=== PATIENT | male | born 1955 | race Caucasian/White ===

== ENCOUNTER 2022-10-24 20:27 | Inpatient (IN) | payer MEDICARE, SELFPAY ==
[2022-10-24] MEDS ORDERED: Senokot S 8.6-50 MG TAB PO PRN (21:03)
[2022-10-24] MEDS ORDERED: Acetaminophen 325 MG TAB PO PRN (21:03)
[2022-10-24] MEDS ORDERED: Zolpidem Tartrate 5 MG TAB PO PRN (21:03)
[2022-10-24] MEDS ORDERED: HYDROcodone/Acetaminophen 5/325 mg Tablet PO PRN (21:03)
[2022-10-24] MEDS ORDERED: Ondansetron PF 4 MG/2 ML Vial IVP PRN (21:03)
[2022-10-24] MEDS ORDERED: Calcium Carbonate 500 MG ChewTAB PO PRN (21:03)
[2022-10-24] MEDS ORDERED: Guaifenesin DM 100-10/5 ML UDCUP PO PRN (21:03)
[2022-10-24] MEDS ORDERED: Nitroglycerin 0.4 MG TAB (25 Tab Bottle) SL PRN (21:05)
[2022-10-24] MEDS ORDERED: Lactated Ringer's 1,000 ML IV SCH (21:15)
[2022-10-24] MEDS ORDERED: Metoprolol Tartrate 25 MG TAB PO SCH (21:15)
[2022-10-24] MEDS: Famotidine/PF 20 mg/2ml Vial SLOW IVP SCH (22:11)
[2022-10-24 23:10] VITALS: BMI 26.9
[2022-10-25 03:42] LABS: Anion Gap 14 mmol/L (10-20); BUN (Urea Nitrogen) 12 mg/dL (8.4-25.7); Calc. Creatinine Clearance 101 mL/min (70-130); Calcium 8.8 mg/dL (7.8-10.44); Carbon Dioxide 22 mmol/L (23-31); Cardiac Risk 7.9 (Less than 4.5); Chloride 109 mmol/L (98-107); Cholesterol 221 mg/dl (< 200 Desired); Estimated GFR 96; Glucose 92 mg/dL (80-115); HDL Cholesterol 28 mg/dL (>60 Neg Risk); LDL Cholesterol, Calculated 161 mg/dL; Potassium 3.9 mmol/L (3.5-5.1); Sodium 141 mmol/L (136-145); Triglycerides 162 mg/dL (Less than 150)
[2022-10-25 04:11] LABS: #Basophils 0.1 10x3/uL (0.0-0.2); #Eosinphils 0.1 10x3/uL (0.0-0.5); #Monocytes 0.6 10x3/uL (0.0-1.1); #Neutrophils 3.2 10x3/uL (1.5-8.4); %Eosinophils 1.8 % (0.0-6.0); %Lymphocytes 35.8 % (18.0-47.0); %Monocytes 9.1 % (0.0-10.0); Hemoglobin 14.1 g/dL (13.5-17.5); Mean Corpuscular HGB CONC 34.8 g/dL (32.0-36.0); Mean Corpuscular Hemoglobin 32.4 pg (27.0-33.0); Mean Corpuscular Volume 93.1 fl (81.2-95.1); Mean Platelet Volume 9.5 fl (7.4-10.4); Platelet Count 206 10x3/uL (150-450); RBC Distribution Width 12.4 % (11.5-14.5); Red Blood Cell (RBC) Count 4.35 10x6/uL (4.32-5.72); White Blood Cell (WBC) Count 6.2 10x3/uL (3.5-10.5)
[2022-10-25 04:12] LABS: CKMB 24.3 ng/mL (0-6.6)
[2022-10-25] MEDS: Metoprolol Tartrate 25 MG TAB PO SCH ×3 (08:18→09:59)
[2022-10-25] MEDS: Lisinopril 2.5 MG TAB PO SCH ×2 (08:18→08:29)
[2022-10-25] MEDS: Aspirin 81 mg Enteric Coated Tablet PO SCH (08:18)
[2022-10-25] MEDS: Famotidine/PF 20 mg/2ml Vial SLOW IVP SCH ×3 (08:19→21:02)
[2022-10-25] MEDS ORDERED: Communication Order-Pharmacy FS SCH (09:15)
[2022-10-25] MEDS ORDERED: Lidocaine 1% MPF 2 ML VIAL ONE (11:46)
[2022-10-25] MEDS ORDERED: Lidocaine 1% (PF) 30 ML VIAL ONE (11:46)
[2022-10-25] MEDS ORDERED: Heparin 10,000 UNITS/ 10 ML VIAL ONE ×2 (11:46→12:41)
[2022-10-25] MEDS ORDERED: Nitroglycerin 50 MG/250 ML BOT 0 ML ONE (11:46)
[2022-10-25] MEDS ORDERED: Verapamil 5 MG/2 ML VIAL ONE (11:47)
[2022-10-25] MEDS ORDERED: Adenosine 6 MG/2 ML VIAL ONE (11:48)
[2022-10-25] MEDS ORDERED: Sodium Chloride 0.9% 1,000 ML ONE (11:48)
[2022-10-25] MEDS ORDERED: Midazolam HCl 2 mg/2 ml Vial ONE ×2 (11:49→12:47)
[2022-10-25] MEDS ORDERED: fentaNYL 50 mcg/mL 1 mL Vial ONE (11:49)
[2022-10-25] MEDS ORDERED: TICAGRELOR 90 MG TABLET ONE (12:36)
[2022-10-25] MEDS ORDERED: Sodium Chloride 0.9% 200 ML IV PRN (12:59)
[2022-10-25] MEDS ORDERED: Nitroglycerin 0.4 MG TAB (25 Tab Bottle) SL PRN (12:59)
[2022-10-25] MEDS ORDERED: Acetaminophen/Codeine 30-300mg Tablet PO PRN ×2 (12:59)
[2022-10-25] MEDS ORDERED: Iopamidol 300 61% 100 ML VIAL FS ONE (13:41)
[2022-10-25 17:14] LABS: Hemoglobin A1c 5.3 % (4.0-6.0)
[2022-10-25] MEDS: TICAGRELOR 90 MG TABLET PO SCH ×2 (20:44→21:03)
[2022-10-25] MEDS ORDERED: Atorvastatin Calcium 40 MG TAB PO SCH (21:00)
[2022-10-26] MEDS: Famotidine/PF 20 mg/2ml Vial SLOW IVP SCH (07:50)
[2022-10-26] MEDS ORDERED: Ezetimibe 10 MG TAB PO SCH (09:00)
[2022-10-26] MEDS ORDERED: Clopidogrel Bisulfate 75 MG TAB PO SCH (10:00)
[2022-10-26] MEDS: Aspirin 81 mg Enteric Coated Tablet PO SCH (10:24)
[2022-10-26] MEDS: TICAGRELOR 90 MG TABLET PO SCH (10:28)
[2022-10-26 11:06] VITALS: BP 125/74; TEMP 97.8
[2022-10-27] MEDS ORDERED: Clopidogrel Bisulfate 75 MG TAB PO SCH (09:00)
== END 2022-10-26 11:05 | disposition home or self-care (01) | DRG 247 ==
LOC: CSHTELE 20:27 → OBSVTOIN 21:03
PROVIDERS: ADMIT Internal Medicine; ATTEND Internal Medicine
PROC: 027034Z Dilation of Coronary Artery, One Artery with Drug-eluting Intraluminal Device, Percutaneous Approach (ICD-10-PCS; principal; 2022-10-25)
PROC: 4A023N7 Measurement of Cardiac Sampling and Pressure, Left Heart, Percutaneous Approach (ICD-10-PCS; 2022-10-25)
PROC: B2111ZZ Fluoroscopy of Multiple Coronary Arteries using Low Osmolar Contrast (ICD-10-PCS; 2022-10-25)
PROC: B2131ZZ Fluoroscopy of Multiple Coronary Artery Bypass Grafts using Low Osmolar Contrast (ICD-10-PCS; 2022-10-25)
PROC: B2181ZZ Fluoroscopy of Left Internal Mammary Bypass Graft using Low Osmolar Contrast (ICD-10-PCS; 2022-10-25)
PROC: B2151ZZ Fluoroscopy of Left Heart using Low Osmolar Contrast (ICD-10-PCS; 2022-10-25)
DX: I21.4 Non-ST elevation (NSTEMI) myocardial infarction (principal); I25.810 Atherosclerosis of coronary artery bypass graft(s) without angina pectoris; I25.10 Atherosclerotic heart disease of native coronary artery without angina pectoris; E78.5 Hyperlipidemia, unspecified; N18.2 Chronic kidney disease, stage 2 (mild); R73.9 Hyperglycemia, unspecified; I12.9 Hypertensive chronic kidney disease with stage 1 through stage 4 chronic kidney disease, or unspecified chronic kidney disease; Z79.82 Long term (current) use of aspirin; Z79.899 Other long term (current) drug therapy; Z95.1 Presence of aortocoronary bypass graft; I25.2 Old myocardial infarction; Z95.5 Presence of coronary angioplasty implant and graft; Z91.199 Patient's noncompliance with other medical treatment and regimen due to unspecified reason
CPT/HCPCS: 36415; 80048; 80061; 82553; 83036; 84484; 85025; 85347; 92937; 93306; 93459; 94760; 99152; 99153; C1760; C1769; C1874; C1887; C1894; C9604; J0153; J1644; J2001; J2250; J3010; J7050; J7120; Q9967; S0028